=== PATIENT | female | born 1995 | race African-American/Black ===

== ENCOUNTER 2016-07-18 08:18 | Emergency (ER) | payer SELFPAY ==
[~2016-07-18] VITALS: Ht 170.2 cm; Wt 82.0 kg
[~2016-07-18 08:18] MED LIST: MACR100C PO
[2016-07-18 08:20] VITALS: BP 123/60; PULSE 74; RESP 16; TEMP 98.7; O2SAT 99
--- NOTE | 2016-07-18 09:00 | PD ---
HPI Chief Complaint: Cold / Flu Symptoms Time Seen by Provider: 08:49 Travel History International Travel<30 days: No Contact w/Intl Traveler<30days: No Traveled to known affect area: No History of Present Illness HPI 21-year-old female with no significant past medical history presents to emergency room with multiple chief complaints. She reports she has sore throat , headache, nasal congestion, cough for one day. She also reports that she has foul-smelling vaginal discharge and irritation for 1 month. She reports she had similar symptoms with a prior diagnosis of BV. She denies dysuria, abdominal pain, nausea, vomiting, fever or chills. She does report unprotected intercourse over the last several months with the possibility of STD infection. [facility] Past Medical History Medical History: Denies Significant Hx Social History Alcohol Use: No Tobacco Use: No Substance Use: No Allergies-Medications (Allergen,Severity, Reaction): Coded Allergies: No Known Allergies (Unverified , 07/18/16) Reported Meds & Prescriptions Reported Meds & Active Scripts Active No Active Prescriptions or Reported Medications Review of Systems Except as stated in HPI: all other systems reviewed are Neg Physical Exam Narrative GENERAL: Well-appearing well-nourished young black female. SKIN: Focused skin assessment warm/dry. HEAD: Atraumatic. Normocephalic. EYES: Pupils equal and round. No scleral icterus. No injection or drainage. ENT: No nasal bleeding or discharge. Mucous membranes pink and moist. NECK: Trachea midline. No JVD. CARDIOVASCULAR: Regular rate and rhythm. No murmur appreciated. RESPIRATORY: No accessory muscle use. Clear to auscultation. Breath sounds equal bilaterally. GASTROINTESTINAL: Abdomen soft, non-tender, nondistended. No guarding. Hepatic and splenic margins not palpable. PELVIC: No vaginal lesions. Moderate amount of thick yellow discharge in the vaginal vault. Friable cervix. No cervical motion tenderness. No adnexal mass or tenderness. MUSCULOSKELETAL: No obvious deformities. No clubbing. No cyanosis. No edema. NEUROLOGICAL: Awake and alert. No obvious cranial nerve deficits. Motor grossly within normal limits. Normal speech. PSYCHIATRIC: Appropriate mood and affect; insight and judgment normal. Data Data Last Documented VS Vital Signs Date Time Temp Pulse Resp B/P Pulse Ox O2 Delivery O2 Flow Rate FiO2 07/18/16 08:20 98.7 74 16 123/60 99 Orders Gc And Chlamydia Pcr (07/18/16 09:03) Wet Prep Profile (07/18/16 09:03) Urinalysis - C+S If Indicated (07/18/16 09:03) Ed Urine Pregnancytest Poc (07/18/16 09:03) Labs Laboratory Tests Test 07/18/16 09:15 Urine Color YELLOW Urine Turbidity CLEAR Urine pH 6.0 Urine Specific [place] 1.034 Urine Protein TRACE mg/dL Urine Glucose (UA) NEG mg/dL Urine Ketones NEG mg/dL Urine Occult Blood NEG Urine Nitrite NEG Urine Bilirubin NEG Urine Urobilinogen LESS THAN 2.0 MG/DL Urine Leukocyte Esterase TRACE Urine RBC 1 /hpf Urine WBC 2 /hpf Urine Squamous Epithelial 4 /hpf Cells Urine Bacteria FEW /hpf Urine Mucus FEW /lpf Microscopic Urinalysis Comment CULT NOT INDICATED Clue Cells (Wet Prep) PRESENT Vaginal Trichomonas (Wet Prep) NONE SEEN Vaginal Yeast (Wet Prep) NONE SEEN MDM Medical Decision Making Medical Screen Exam Complete: Yes Emergency Medical Condition: Yes Differential Diagnosis URI, bacterial vaginosis, cervicitis, PID Narrative Course 21-year-old female with no significant past medical history presents the emergency department for upper respiratory-like illness and vaginal discharge. Patient denies abdominal pain, fever chills, nausea vomiting. Pelvic exam she has a friable cervix. GC chlamydia pending. Wet prep showed positive clue cells, negative for Trichomonas. Patient will be treated for cervicitis and bacterial vaginosis. Discussed findings with patient she agrees to follow up PCP. Or return to the emergency department for new or worsening symptoms. She was educated on safe sex practices. Diagnosis Primary Impression: Cervicitis Additional Impression: Bacterial vaginosis Referrals: Certified Midwife Patient Instructions: Bacterial Vaginosis (ED), Cervicitis (ED), General Instructions Scripts Metronidazole 500 Mg [id number] Mg PO BID #14 TAB Ref 0 Prov:Chelsey Benson 07/18/16 Disposition: 01 DISCHARGE HOME Condition: Stable Chelsey Benson July 18, 2016 09:00
[2016-07-18 09:44] LABS: BACTERIA, URINE FEW /hpf; BLOOD, URINE NEG (NEG); COMMENT (UR) CULT NOT INDICATED; CULTURE IF INDICATED CULT NOT INDICATED; GLUCOSE,URINE NEG (NEG); KETONE, URINE NEG (NEG); MUCUS URINE FEW /lpf (OCC); NITRITE,URINE NEG (NEG); SQUAMOUS EPITHELIAL CELL URINE 4 /hpf (0-5); URINE COLOR YELLOW (YELLW/STRAW)
[2016-07-18] MEDS ORDERED: METR500T10 PO (10:04)
[2016-07-18] MEDS ORDERED: cefTRIAXone 250 MG VIAL IM ONE (10:15)
[2016-07-18] MEDS ORDERED: AZITHROMYCIN PWD FOR SUSP 1 GM PACKET PO ONE (10:15)
[2016-07-18] MEDS ORDERED: LIDOCAINE HCL 1% 50 ML VIAL IM ONE (10:15)
[2016-07-18 12:53] LABS: CHLAMYDIA PCR DETECTED (NOT DETECT); NEISSERIA PCR NOT DETECTED (NOT DETECT)
== END 2016-07-18 10:33 | disposition home or self-care (01) ==
LOC: NEPK 08:18
DX: N89.8 Other specified noninflammatory disorders of vagina (principal); N76.0 Acute vaginitis; J02.9 Acute pharyngitis, unspecified; R51 Headache
CPT/HCPCS: 81001; 84703; 87210; 87491; 87591; 96372; 99284; J0696

== ENCOUNTER 2016-12-15 08:01 | Emergency (ER) | payer SELFPAY ==
[~2016-12-15] VITALS: Ht 170.2 cm; Wt 82.0 kg
[~2016-12-15 08:01] MED LIST changes: -MACR100C PO; +METR500T10 PO
[2016-12-15 08:03] VITALS: BP 136/80; PULSE 66; RESP 15; TEMP 98.4; O2SAT 98
[2016-12-15 09:10] VITALS: BP 138/94; PULSE 63; RESP 16; O2SAT 99
[2016-12-15] MEDS ORDERED: BIOT10TA PO ×2 (09:12)
[2016-12-15] MEDS ORDERED: MULTTAB67 PO (09:12)
--- NOTE | 2016-12-15 09:12 | PD ---
HPI Chief Complaint: Abdominal Pain Time Seen by Provider: 09:12 Travel History International Travel<30 days: No Contact w/Intl Traveler<30days: No Traveled to known affect area: No History of Present Illness HPI 21-year-old female came to the emergency room with history of vaginal discharge that as per her does not smell good. She has been getting this for past 1 week. She has history of bacterial vaginosis in the past and is wondering if she has it again. 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 Patient does not have insurance. She is complaining of some lower abdominal achiness. No dysuria. She has had unprotected sex. Bedside urine was negative. Vital signs are stable. Patient does not appear to be in any distress. No fever or chills. [facility] Past Medical History Narrative Medical List of her past medical, surgical, social and family history is reviewed from the nursing note. Medical History: Denies Significant Hx Medical other: Yes (BACTERIAL VAGINOSIS) Musculoskeletal: Yes (SCOLIOSIS) Influenza Vaccination: No ?: Not LMP: end of october 2016 Past Surgical History Surgical History: No Previous Surgery Social History Alcohol Use: No Tobacco Use: No Substance Use: No Allergies-Medications (Allergen,Severity, Reaction): Coded Allergies: No Known Allergies (Unverified , 12/21/16) Comments No known drug allergies. Reported Meds & Prescriptions Reported Meds & Active Scripts Active Pyridium (Phenazopyridine HCl) 100 Mg Tab 100 Mg PO Q8HR 6 Days Macrobid (Nitrofurantoin Monohydrate Macrocrystals) 100 Mg Capsule 100 Mg PO BID 7 Days Reported Multiple Vitamin 1 Tab 1 Tab PO DAILY Biotin 10 Mg Tab 10 Mg PO DAILY Narrative Medication List of her home medications reviewed from the nursing note. Review of Systems Except as stated in HPI: all other systems reviewed are Neg Genitourinary: Positive: Discharge Physical Exam Narrative GENERAL: Awake alert, no obvious distress SKIN: Focused skin assessment warm/dry. HEAD: Atraumatic. Normocephalic. EYES: Pupils equal and round. No scleral icterus. No injection or drainage. ENT: No nasal bleeding or discharge. Mucous membranes pink and moist. NECK: Trachea midline. No JVD. CARDIOVASCULAR: Regular rate and rhythm. No murmur appreciated. RESPIRATORY: No accessory muscle use. Clear to auscultation. Breath sounds equal bilaterally. GASTROINTESTINAL: Abdomen soft, non-tender, nondistended. Hepatic and splenic margins not palpable. : External inspection within normal limit. Speculum exam shows clear mucousy discharge. The cervix does look to be eroded. Swabs were collected. MUSCULOSKELETAL: No obvious deformities. No clubbing. No cyanosis. No edema. NEUROLOGICAL: Awake and alert. No obvious cranial nerve deficits. Motor grossly within normal limits. Normal speech. PSYCHIATRIC: Appropriate mood and affect; insight and judgment normal. Data Data Last Documented VS Orders Orders Gc And Chlamydia Pcr (12/15/16 09:19) Wet Prep Profile (12/15/16 09:19) Ua Includes Microscopic (12/15/16 09:19) Ed Urine Pregnancytest Poc (12/15/16 09:19) Ed Discharge Order (12/15/16 10:45) Labs Laboratory Tests Test 12/15/16 09:25 12/15/16 09:57 Urine Color YELLOW Urine Turbidity CLEAR Urine pH 7.0 Urine Specific [place] 1.030 Urine Protein TRACE mg/dL Urine Glucose (UA) NEG mg/dL Urine Ketones NEG mg/dL Urine Occult Blood NEG Urine Nitrite NEG Urine Bilirubin NEG Urine Urobilinogen LESS THAN 2.0 MG/DL Urine Leukocyte Esterase NEG Urine RBC LESS THAN 1 /hpf Urine WBC LESS THAN 1 /hpf Urine Squamous Epithelial Cells 1 /hpf Urine Bacteria OCC /hpf Urine Mucus FEW /lpf Clue Cells (Wet Prep) NONE SEEN Vaginal Trichomonas (Wet Prep) NONE SEEN Vaginal Yeast (Wet Prep) NONE SEEN Chlamydia trachomatis DNA (PCR) NOT DETECTED Neisseria gonorrhoeae DNA (PCR) NOT DETECTED MDM Medical Decision Making Medical Screen Exam Complete: Yes Emergency Medical Condition: Yes Medical Record Reviewed: Yes Differential Diagnosis Bacterial vaginosis, vaginitis, UTI Narrative Course 10:50 AM wet prep is back and does not show any abnormality. UA looks okay. I am comfortable discharging her home. She needs a Pap smear since patient says that she does not even recall the last one since it was years ago. The cervix did not look completely normal and she will be given information where she could get it done for free. Procedures EKG Prior to Arrival: No Diagnosis Primary Impression: Vaginal discharge Additional Impression: Cervical erosion Referrals: Primary Care Physician Additional Instructions: you need a Pap smear. Please go to [facility] if he cannot find a [employer] DAT[employer]ASE ADMINISTRATOR to get that done. Return to the ER if the condition worsens or any other new concerns. Med/Other Pt SpecificInfo: No Change to Meds Disposition: 01 DISCHARGE HOME Condition: Stable Maryann He MD Dec 15, 2016 09:12
[2016-12-15 10:10] LABS: BACTERIA, URINE OCC /hpf; BLOOD, URINE NEG (NEG); GLUCOSE,URINE NEG (NEG); KETONE, URINE NEG (NEG); MUCUS URINE FEW /lpf (OCC); NITRITE,URINE NEG (NEG); SQUAMOUS EPITHELIAL CELL URINE 1 /hpf (0-5); URINE COLOR YELLOW (YELLW/STRAW)
[2016-12-15 12:11] LABS: CHLAMYDIA PCR NOT DETECTED (NOT DETECT); NEISSERIA PCR NOT DETECTED (NOT DETECT)
[2016-12-21] MEDS ORDERED: PHEN0.4T PO (09:12)
[2016-12-21] MEDS ORDERED: MACR100C2 PO (09:12)
== END 2016-12-15 11:05 | disposition home or self-care (01) ==
LOC: NEPD 08:01
DX: N89.8 Other specified noninflammatory disorders of vagina (principal)
CPT/HCPCS: 81001; 84703; 87210; 87491; 87591; 99283

== ENCOUNTER 2016-12-21 07:36 | Emergency (ER) | payer SELFPAY ==
[~2016-12-21 07:36] MED LIST changes: +BIOT10TA PO; -METR500T10 PO; +MULTTAB67 PO
[2016-12-21 07:38] VITALS: BP 127/78; PULSE 73; RESP 14; TEMP 98.6; O2SAT 100
--- NOTE | 2016-12-21 08:09 | PD ---
HPI Chief Complaint: Complaint Time Seen by Provider: 08:05 Travel History International Travel<30 days: No Contact w/Intl Traveler<30days: No Traveled to known affect area: No History of Present Illness HPI This is a 21-year-old female with no past history, presents today with complaints of suprapubic discomfort with urinary frequency and dysuria. The patient denies any fevers, chills. She states she has mild discomfort in her lower back. She was seen here Sunday for vaginal discharge and at that time they did pelvic exam with cultures. She reports that the TREATING INSPECTOR cultures were negative. She has no other complaints time my examination. PFSH Past Medical History Musculoskeletal: Yes (SCOLIOSIS) ?: Unknown Past Surgical History Surgical History: No Previous Surgery Social History Alcohol Use: No Tobacco Use: No Substance Use: No Allergies-Medications (Allergen,Severity, Reaction): Coded Allergies: No Known Allergies (Unverified , 12/21/16) Reported Meds & Prescriptions Reported Meds & Active Scripts Active Pyridium (Phenazopyridine HCl) 100 Mg Tab 100 Mg PO Q8HR 6 Days Macrobid (Nitrofurantoin Monohydrate Macrocrystals) 100 Mg Capsule 100 Mg PO BID 7 Days Reported Multiple Vitamin 1 Tab 1 Tab PO DAILY Biotin 10 Mg Tab 10 Mg PO DAILY Review of Systems Except as stated in HPI: all other systems reviewed are Neg General / Constitutional: No: Fever, Chills Gastrointestinal: No: Nausea, Vomiting, Abdominal Pain Genitourinary: Positive: Frequency, Dysuria, Other (suprapubic discomfort), No : Hematuria, Incontinence, Pelvic Pain, Discharge (none today), Vaginal Bleeding Musculoskeletal: Positive: Pain (mild low back pain), No: Myalgias, Weakness Physical Exam Narrative GENERAL: Well-nourished, well-developed patient, in no acute respiratory distress. SKIN: Focused skin assessment warm/dry. HEAD: Normocephalic/atraumatic. EYES: No scleral icterus. No injection or drainage. NECK: Supple, trachea midline. No JVD or lymphadenopathy. GASTROINTESTINAL: Abdomen soft, non-tender, nondistended. Subjective suprapubic discomfort. No rebound or guarding. MUSCULOSKELETAL: No cyanosis, or edema. BACK: Subjective low back pain. No CVA tenderness bilaterally. NEUROLOGICAL: Awake and alert. Cranial nerves II through XII intact. Motor grossly within normal limits. Five out of 5 muscle strength in all muscle groups. Normal speech. Data Data Last Documented VS Vital Signs Date Time Temp Pulse Resp B/P (MAP) Pulse Ox O2 Delivery O2 Flow Rate FiO2 12/21/16 07:46 (94) 12/21/16 07:38 98.6 73 14 100 Orders Orders Urinalysis - C+S If Indicated (12/21/16 08:06) Ed Urine Pregnancytest Poc (12/21/16 08:06) Urine Culture (12/21/16 08:00) Labs Laboratory Tests Test 12/21/16 08:00 Urine Color YELLOW Urine Turbidity HAZY Urine pH 5.5 Urine Specific [place] 1.025 Urine Protein 30 mg/dL Urine Glucose (UA) NEG mg/dL Urine Ketones NEG mg/dL Urine Occult Blood SMALL Urine Nitrite NEG Urine Bilirubin NEG Urine Urobilinogen LESS THAN 2.0 MG/DL Urine Leukocyte Esterase LARGE Urine RBC 7 /hpf Urine WBC /hpf Urine Squamous Epithelial Cells 1 /hpf Urine Bacteria OCC /hpf Urine Mucus FEW /lpf Microscopic Urinalysis Comment CULTURE INDICATED MDM Medical Decision Making Medical Screen Exam Complete: Yes Emergency Medical Condition: Yes Differential Diagnosis Cystitis versus interstitial cystitis versus bladder spasms Narrative Course 21-year-old female presents with urinary frequency, dysuria. The patient has a urinary tract infection on labs. She'll be treated with Macrobid 1 by mouth twice a day 7 days. She also be given 2 days Pyridium prescription. Culture has been sent. She'll be discharged and told to return if she develops any worsening symptoms. Diagnosis Primary Impression: Cystitis Additional Instructions: Return if feeling worse. Med/Other Pt SpecificInfo: Prescription(s) given Scripts Phenazopyridine (Pyridium) 100 Mg Tab 100 MG PO Q8HR for Dysuria for 6 Days, TAB 0 Refills Prov: Aayush Mustafa MD 12/21/16 Nitrofurantoin Monohydrate Macrocrystals (Macrobid) 100 Mg Capsule 100 MG PO BID for Infection for 7 Days, #14 CAP 0 Refills Prov: Aayush Mustafa MD 12/21/16 Disposition: 01 DISCHARGE HOME Condition: Stable Aayush Mustafa MD Dec 21, 2016 08:09
[2016-12-21 08:49] LABS: BACTERIA, URINE OCC /hpf; BILIRUBIN, URINE NEG (NEG); BLOOD, URINE SMALL (NEG); GLUCOSE,URINE NEG (NEG); KETONE, URINE NEG (NEG); MUCUS URINE FEW /lpf (OCC); NITRITE,URINE NEG (NEG); PH, URINE 5.5 (5.0-8.5); SQUAMOUS EPITHELIAL CELL URINE 1 /hpf (0-5); URINE COLOR YELLOW (YELLW/STRAW); URINE LEUKOCYTE ESTERASE LARGE (NEG)
[2016-12-21] MEDS ORDERED: PHEN0.4T PO ×2 (09:12)
[2016-12-21] MEDS ORDERED: MACR100C2 PO ×2 (09:12)
== END 2016-12-21 09:34 | disposition home or self-care (01) ==
LOC: NEPE 07:36
DX: N30.90 Cystitis, unspecified without hematuria (principal); B96.20 Unspecified Escherichia coli [E. coli] as the cause of diseases classified elsewhere
CPT/HCPCS: 81001; 84703; 87077; 87086; 87186; 99284

== ENCOUNTER 2017-02-25 14:46 | Emergency (ER) | payer SELFPAY ==
[~2017-02-25] VITALS: Ht 170.2 cm; Wt 74.0 kg
[~2017-02-25 14:46] MED LIST changes: +MACR100C2 PO; +PHEN0.4T PO
[2017-02-25 14:48] VITALS: BP 132/84; PULSE 67; RESP 14; TEMP 97.9; O2SAT 97
--- NOTE | 2017-02-25 15:33 | PD ---
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 Denies dysuria, urinary frequency. Reports low back discomfort. Reports suprapubic abdominal pain. Denies fever, vomiting. Last menstrual period February 14. Rates pain 5/10. Describes pain as a pressure. Has not taken any medication or treatment she was to be her symptoms. Has no other medical complaints. No primary care provider. Has been going to [facility] for follow-up. No known allergies. Denies significant past medical history. Has no other medical complaints. No other modifying factors or associated signs and symptoms. PFSH Past Medical History Medical History: Denies Significant Hx Musculoskeletal: Yes (SCOLIOSIS) ?: Not LMP: 02/16/17 Past Surgical History Surgical History: No Previous Surgery Social History Alcohol Use: No Tobacco Use: No Substance Use: No Allergies-Medications (Allergen,Severity, Reaction): Coded Allergies: No Known Allergies (Unverified Adverse Reaction, Unknown, 02/25/17) Reported Meds & Prescriptions Reported Meds & Active Scripts Active Keflex (Cephalexin) 500 Mg Cap 500 Mg PO Q12H 7 Days Review of Systems Except as stated in HPI: all other systems reviewed are Neg Physical Exam Narrative GENERAL: Well-nourished, well-developed black female patient, in no acute distress; afebrile, nontoxic-appearing SKIN: Warm and dry. HEAD: Atraumatic. Normocephalic. EYES: Pupils equal and round. No scleral icterus. No injection or drainage. ENT: Mucous membranes pink and moist. NECK: Trachea midline. No lymphadenopathy. CARDIOVASCULAR: Regular rate and rhythm. No murmur appreciated. RESPIRATORY: No accessory muscle use. Clear to auscultation. Breath sounds equal bilaterally. GASTROINTESTINAL: Abdomen soft, non-tender, nondistended. Bilateral pelvic region nontender to palpation. Hepatic and splenic margins not palpable. No guarding, rigidity, rebound tenderness. PELVIC: Exam done in the presence of a nurse. Speculum exam reveals edematous and erythematous cervix with mucopurulent, foul-smelling discharge. Bimanual exam reveals no palpable masses or adnexa tenderness, no uterine tenderness. No cervical motion tenderness. BACK: No CVA tenderness. MUSCULOSKELETAL: No obvious deformities. No clubbing. No cyanosis. No edema. NEUROLOGICAL: Awake and alert. No obvious cranial nerve deficits. Motor grossly within normal limits. Normal speech. PSYCHIATRIC: Appropriate mood and affect; insight and judgment normal. Data Data Last Documented VS Vital Signs Date Time Temp Pulse Resp B/P (MAP) Pulse Ox O2 Delivery O2 Flow Rate FiO2 02/25/17 17:53 02/25/17 14:48 97.9 67 14 97 Room Air Orders Orders Gc And Chlamydia Pcr (02/25/17 15:46) Wet Prep Profile (02/25/17 15:46) Urinalysis - C+S If Indicated (02/25/17 15:46) Ed Urine Pregnancytest Poc (02/25/17 15:46) Azithromycin (Zithromax) (02/25/17 16:00) Ondansetron Odt (Zofran Odt) (02/25/17 16:00) Ceftriaxone Inj (Rocephin Inj) (02/25/17 16:00) Lidocaine 1% Inj (50 Ml) (Xylocaine 1% I (02/25/17 16:00) Urine Culture (02/25/17 15:50) Ed Discharge Order (02/25/17 17:20) Labs Laboratory Tests Test 02/25/17 15:50 Urine Color YELLOW Urine Turbidity HAZY Urine pH 6.0 Urine Specific [place] 1.023 Urine Protein TRACE mg/dL Urine Glucose (UA) NEG mg/dL Urine Ketones 10 mg/dL Urine Occult Blood MOD Urine Nitrite NEG Urine Bilirubin NEG Urine Urobilinogen LESS THAN 2.0 MG/DL Urine Leukocyte Esterase MOD Urine RBC 31 /hpf Urine WBC 17 /hpf Urine Squamous Epithelial Cells 11 /hpf Urine Bacteria FEW /hpf Urine Mucus FEW /lpf Microscopic Urinalysis Comment CULTURE INDICATED Clue Cells (Wet Prep) NONE SEEN Vaginal Trichomonas (Wet Prep) NONE SEEN Vaginal Yeast (Wet Prep) NONE SEEN Chlamydia trachomatis DNA (PCR) DETECTED Neisseria gonorrhoeae DNA (PCR) NOT DETECTED MDM Medical Decision Making Medical Screen Exam Complete: Yes Emergency Medical Condition: Yes Medical Record Reviewed: Yes Differential Diagnosis Chlamydia, gonorrhea, cervicitis, pelvic inflammatory disease, urinary tract infection, bacterial vaginosis Narrative Course 22-year-old female who exam consistent with cervicitis. Wet prep, chlamydia, gonorrhea, urinalysis, UPT ordered. 1718: Urinalysis with signs of infection. Trichomonas, vaginal yeast, clue cells negative. Chlamydia and gonorrhea pending. Patient was empirically treated with azithromycin and Rocephin in the ER. Keflex prescribed for home. Instructed patient to follow up with primary care provider. Patient verbalizes understanding and agreement with treatment plan. Patient is medically cleared and stable for discharge. Discussed reasons to return to the emergency department. Patient agrees with treatment plan. The patients vital signs are stable and the patient is stable for outpatient follow-up and treatment. Patient discharged home, stable and in no acute distress. Diagnosis Primary Impression: Cervicitis Additional Impression: UTI (urinary tract infection) Qualified Codes: N39.0 - Urinary tract infection, site not specified; R31.9 - Hematuria, unspecified Referrals: [facility] Primary Care Physician Patient Instructions: Cervicitis (ED), General Instructions, Urinary Tract Infection in Women (ED) Additional Instructions: Take antibiotics as prescribed and complete full course Drink plenty of fluids Maintain good personal hygiene Follow-up with primary care provider Return to the emergency department immediately with worsening of symptoms Med/Other Pt SpecificInfo: Prescription(s) given Scripts Cephalexin (Keflex) 500 Mg Cap 500 MG PO Q12H for Infection for 7 Days, #14 CAP 0 Refills Prov: Little Latif 02/25/17 Disposition: 01 DISCHARGE HOME Condition: Stable Little Latif Feb 25, 2017 15:33
[2017-02-25] MEDS ORDERED: AZITHROMYCIN 250 MG TAB PO ONE (16:00)
[2017-02-25] MEDS ORDERED: LIDOCAINE HCL 1% 50 ML VIAL IM ONE (16:00)
[2017-02-25] MEDS ORDERED: cefTRIAXone 250 MG VIAL IM ONE (16:00)
[2017-02-25] MEDS ORDERED: ONDANSETRON ODT 4 MG TAB PO ONE (16:00)
[2017-02-25 16:23] LABS: BACTERIA, URINE FEW /hpf; BILIRUBIN, URINE NEG (NEG); BLOOD, URINE MOD (NEG); GLUCOSE,URINE NEG (NEG); KETONE, URINE 10 mg/dL (NEG); MUCUS URINE FEW /lpf (OCC); NITRITE,URINE NEG (NEG); SQUAMOUS EPITHELIAL CELL URINE 11 /hpf (0-5); URINE COLOR YELLOW (YELLW/STRAW); URINE LEUKOCYTE ESTERASE MOD (NEG)
[2017-02-25] MEDS ORDERED: CEPH-460 PO (17:20)
== END 2017-02-25 17:54 | disposition home or self-care (01) ==
LOC: NEPD 14:46
DX: N72 Inflammatory disease of cervix uteri (principal); N39.0 Urinary tract infection, site not specified; M41.9 Scoliosis, unspecified
CPT/HCPCS: 81001; 84703; 87086; 87210; 87491; 87591; 96372; 99284; J0696